=== PATIENT | female | born 1950 | race Hispanic/Latino ===

== ENCOUNTER 2021-10-28 19:04 | Inpatient (IN) | payer OTHER ==
[2021-10-28] VITALS (9 sets, daily range): BP systolic 116–167; BP diastolic 53–99
[2021-10-28] MEDS ORDERED: ATROPINE 1MG SYG IVP ONE (19:56)
[2021-10-28] MEDS ORDERED: NITROGLYCERIN 50MG VIAL ONE (19:56)
[2021-10-28] MEDS ORDERED: HEPARIN 10,000 UNIT/10ML (1,000 UNIT/ML) VIAL ONE (19:56)
[2021-10-28] MEDS ORDERED: IOHEXOL-350 75 ML VIAL IV ONE (19:57)
[2021-10-28] MEDS ORDERED: DOPAMINE HCL 400 MG/D5%-WATER 0 ML IV ONE (19:57)
[2021-10-28] MEDS ORDERED: LIDOCAINE HCL 1% 20 ML VIAL ONE ×2 (19:58→21:04)
[2021-10-28] MEDS ORDERED: 0.9% NACL 500ML IV.SOLN 500 ML IV SCH (20:00)
[2021-10-28] MEDS ORDERED: ONDANSETRON 4MG INJ ONE (20:05)
[2021-10-28] MEDS ORDERED: ONDANSETRON 4MG INJ IVP ONE (20:30)
[2021-10-28] MEDS ORDERED: CLOPIDOGREL 75MG TAB ONE (20:42)
[2021-10-28] MEDS ORDERED: NITROGLYCERIN 50MG/D5W 250ML 1 BOT ONE (21:05)
[2021-10-28] MEDS ORDERED: NITROGLYCERIN 50MG/D5W 250ML 250 BOT IV SCH (21:30)
[2021-10-28] MEDS ORDERED: HEPARIN 25,000 UNITS/250ML D5W 250 ML IV SCH (21:30)
[2021-10-28 21:45] LABS: BASOPHILS % (AUTO) 0.2 % (0.0-5.0); EOSINOPHILS % (AUTO) 0.1 % (0.0-8.0); HEMATOCRIT 38.2 % (36-48); LYMPHOCYTES % (AUTO) 7.2 % (21.0-51.0); MEAN CORPUSCULAR HEMOGLOBIN 33.1 pg (27.0-33.0); MEAN CORPUSCULAR HGB CONC 34.8 g/dL (32.0-36.0); MONOCYTES % (AUTO) 4.7 % (3.0-13.0); NEUTROPHILS % (AUTO) 87.3 % (40.0-77.0); PLATELET COUNT (AUTO) 204 K/uL (130-400); RED BLOOD CELL COUNT(AUTO) 4.02 MIL/uL (4.00-5.50); WHITE BLOOD COUNT (AUTO) 11.9 K/uL (4.8-10.8)
[2021-10-28] MEDS ORDERED: ONDANSETRON 4MG INJ IV PRN (23:00)
[2021-10-28] MEDS ORDERED: CHLORDIAZEPOXIDE HCL 25 MG CAP PO PRN ×2 (23:00)
[2021-10-28] MEDS ORDERED: THIAMINE HCL 100 MG, FOLIC ACID 1 MG, M.V.I. IV [ADULT] 10 ML in 0.9%NACL 1000ML 1,000 ML IV SCH (23:00)
[2021-10-28] MEDS ORDERED: NITROGLYCERIN 0.4 MG SL TAB SL PRN (23:00)
[2021-10-28] MEDS ORDERED: ACETAMINOPHEN 325 MG TAB PO PRN ×2 (23:00)
[2021-10-28] MEDS ORDERED: PHARMACY COMMUNICATION MISC PRN (23:00)
[2021-10-28 23:12] LABS: CARBON DIOXIDE 26 mmol/L (21-32); CHLORIDE 102 mmol/L (101-111); CREATININE 0.8 mg/dL (0.5-1.5); GLOMERULAR FILTR. RATE CALC 75 mL/min (>60); GLUCOSE,RANDOM 155 mg/dL (70-105); POTASSIUM 4.6 mmol/L (3.5-5.1); SODIUM SERUM 137 mmol/L (136-145); UREA NITROGEN, BLOOD 24 mg/dL (7-18)
[2021-10-28 23:14] LABS: HEMOGLOBIN A1C 5.7 % (4.0-6.0)
[2021-10-28 23:17] LABS: ALANINE AMINOTRANSFERASE 32 U/L (12-78); ALBUMIN 3.4 g/dL (3.5-5.0); ALCOHOL, BLOOD < 3 mg/dL (0-10); ASPARTATE AMINOTRANSFERASE 162 U/L (10-37); TOTAL PROTEIN, SERUM 6.5 g/dL (6.0-8.3)
[2021-10-29] VITALS (43 sets, daily range): BP systolic 87–185; BP diastolic 41–116
[2021-10-29] MEDS ORDERED: METOCLOPRAMIDE 10 MG/2 ML VIAL IVP ONE
[2021-10-29 00:26] LABS: APPEARANCE,URINE CLEAR (CLEAR); BILIRUBIN,URINE NEGATIVE (NEGATIVE); COLOR,URINE YELLOW (YELLOW); GLUCOSE, URINE (UA) 100 mg/dL (NEGATIVE); KETONES,URINE 15 mg/dL (NEGATIVE); LEUKOCYTE ESTERASE ,URINE NEGATIVE (NEGATIVE); NITRATE,URINE NEGATIVE (NEGATIVE); OCCULT BLOOD,URINE SMALL (NEGATIVE); PH,URINE 5.5 (5.0-8.0); PROTEIN,URINE NEGATIVE (NEGATIVE); UROBILINOGEN,URINE 0.2 mg/dL (0.2-1.0)
[2021-10-29 00:30] LABS: AMPHET/METH SCREEN,URINE NEGATIVE (NEGATIVE); BARBITURATE SCREEN, URINE NEGATIVE (NEGATIVE); BENZODIAZEPINES SCREEN,URINE NEGATIVE (NEGATIVE); CANNABINOID SCREEN,URINE NEGATIVE (NEGATIVE); COCAINE SCREEN,URINE NEGATIVE (NEGATIVE); PHENCYCLIDINE SCREEN,URINE NEGATIVE (NEGATIVE)
[2021-10-29 00:32] LABS: BACTERIA,URINE None Seen /HPF (None Seen); MUCUS,URINE None Seen LPF (None Seen); RBC,URINE 0-1 /HPF (0-1); SQUAMOUS EPITHELIAL CELL,UR None Seen /HPF (0-2); WBC,URINE None Seen /HPF (0-1)
[2021-10-29] MEDS ORDERED: DOPAMINE 800MG/D5 250ML 250 ML IV SCH (01:00)
[2021-10-29 02:51] LABS: ABG BASE EXCESS -8.1 mmol/L (-2.0-3.0); ABG HCO3 19.3 mmol/L (21.0-28.0); ABG OXYGEN SATURATION 89.5 % (95.0-99.0); ABG PCO2 47 mmHg (32-45)
[2021-10-29 03:01] LABS: HEMATOCRIT 38.4 % (36-48); MEAN CORPUSCULAR HGB CONC 34.6 g/dL (32.0-36.0); MEAN CORPUSCULAR VOLUME 95.3 fL (79-99); RED BLOOD CELL COUNT(AUTO) 4.03 MIL/uL (4.00-5.50); RED CELL DISTRIBUTION WIDTH 11.9 % (11.0-15.5); WHITE BLOOD COUNT (AUTO) 19.6 K/uL (4.8-10.8)
[2021-10-29] MEDS ORDERED: NOREPINEPHRIN 4MG/NS 250ML 250 ML IV ONE (03:06)
[2021-10-29 03:23] LABS: ALBUMIN 3.6 g/dL (3.5-5.0); MAGNESIUM 1.6 mg/dL (1.80-2.40); TOTAL PROTEIN, SERUM 6.9 g/dL (6.0-8.3)
[2021-10-29 03:24] LABS: POTASSIUM 2.9 mmol/L (3.5-5.1)
[2021-10-29 03:29] LABS: INR 0.98 (0.85-1.15); PROTHROMBIN TIME 10.7 SEC (9.6-11.6)
[2021-10-29] MEDS ORDERED: 0.9%NACL 1000ML 1,000 ML IV SCH (03:30)
[2021-10-29] MEDS ORDERED: POTASSIUM CHLORIDE 20 MEQ/100 ML BAG IV SCH (03:30)
[2021-10-29] MEDS ORDERED: NOREPINEPHRIN 4MG/NS 250ML 250 ML IV SCH (03:30)
[2021-10-29] MEDS ORDERED: MAGNESIUM 2GM PREMIX 50ML 50 ML IV SCH (03:30)
[2021-10-29 03:32] LABS: ABG BASE EXCESS -5.8 mmol/L (-2.0-3.0); ABG HCO3 18.5 mmol/L (21.0-28.0); ABG PCO2 33 mmHg (32-45)
[2021-10-29 03:54] LABS: PARTIAL THROMBOPLASTIN TIME > 139.0 SEC (26.3-35.5)
[2021-10-29] MEDS ORDERED: MAGNESIUM 2GM PREMIX 50ML 50 ML IV PRN (04:00)
[2021-10-29] MEDS ORDERED: POTASSIUM CHLORIDE 20MEQ/100ML 100 ML IV PRN (04:00)
[2021-10-29] MEDS ORDERED: LIDOCAINE HCL-MPF 1% 2ML VIAL IJ PRN (04:00)
[2021-10-29] MEDS ORDERED: SODIUM BICARB 50MEQ 50ML VIAL 150 ML ONE (05:25)
[2021-10-29] MEDS ORDERED: DiphenhydrAMINE HCL 50 MG/ML VIAL IV ONE (05:30)
[2021-10-29] MEDS ORDERED: SODIUM BICARB 8.4% 50ML SYRINGE IVP SCH (05:30)
[2021-10-29] MEDS ORDERED: SOLU-MEDROL 125MG VIAL IVP ONE (05:30)
[2021-10-29] MEDS ORDERED: FAMOTIDINE 20MG VIAL IV ONE (05:30)
[2021-10-29] MEDS: SODIUM BICARB 8.4% 50ML SYRING 100 MEQ in DEXTROSE 5%-WATER 1,050 ML IVP SCH ×2 (05:30→06:40)
[2021-10-29] MEDS ORDERED: SODIUM BICARB 50MEQ 50ML VIAL 50 ML ONE (05:34)
[2021-10-29] MEDS ORDERED: PHARMACY COMMUNICATION MISC SCH (06:00)
[2021-10-29 06:33] LABS: INR 0.93 (0.85-1.15); PROTHROMBIN TIME 10.1 SEC (9.6-11.6)
[2021-10-29 06:35] LABS: PARTIAL THROMBOPLASTIN TIME 61.1 SEC (26.3-35.5)
[2021-10-29] MEDS ORDERED: LORAZEPAM 2 MG/ML 1 ML VIAL IVP PRN (08:30)
[2021-10-29] MEDS ORDERED: MORPHINE 2 MG SYG IVP PRN (08:30)
[2021-10-29] MEDS ORDERED: MORPHINE 2 MG SYG ONE (08:52)
[2021-10-29] MEDS ORDERED: FAMOTIDINE 20MG TAB PO SCH (09:00)
[2021-10-29] MEDS ORDERED: METOPROLOL TARTRATE 25 MG TAB PO SCH (09:00)
[2021-10-29] MEDS ORDERED: ASPIRIN 81MG CHEW TAB PO SCH (09:00)
[2021-10-29] MEDS ORDERED: ATORVASTATIN 40 MG TABLET PO SCH (21:00)
== END 2021-10-29 09:46 | DRG 270 ==
LOC: 2CH 19:44
PROVIDERS: ADMIT Internal Medicine; ATTEND Internal Medicine
PROC: 4A023N7 Measurement of Cardiac Sampling and Pressure, Left Heart, Percutaneous Approach (ICD-10-PCS; principal; 2021-10-28)
PROC: 5A02210 Assistance with Cardiac Output using Balloon Pump, Continuous (ICD-10-PCS; 2021-10-28)
PROC: B2111ZZ Fluoroscopy of Multiple Coronary Arteries using Low Osmolar Contrast (ICD-10-PCS; 2021-10-28)
PROC: 5A1935Z Respiratory Ventilation, Less than 24 Consecutive Hours (ICD-10-PCS; 2021-10-29)
PROC: 0BH17EZ Insertion of Endotracheal Airway into Trachea, Via Natural or Artificial Opening (ICD-10-PCS; 2021-10-29)
DX: I21.09 ST elevation (STEMI) myocardial infarction involving other coronary artery of anterior wall (principal); G93.6 Cerebral edema; I60.9 Nontraumatic subarachnoid hemorrhage, unspecified; J96.01 Acute respiratory failure with hypoxia; F10.239 Alcohol dependence with withdrawal, unspecified; Z20.822 Contact with and (suspected) exposure to COVID-19; D72.829 Elevated white blood cell count, unspecified; E11.65 Type 2 diabetes mellitus with hyperglycemia; E78.5 Hyperlipidemia, unspecified; F32.A Depression, unspecified; I10 Essential (primary) hypertension; Z66 Do not resuscitate; I25.10 Atherosclerotic heart disease of native coronary artery without angina pectoris; Z51.5 Encounter for palliative care; Z90.710 Acquired absence of both cervix and uterus; Z95.1 Presence of aortocoronary bypass graft
CPT/HCPCS: 31500; 33967; 36415; 36600; 70450; 71045; 80053; 80061; 80305; 81001; 82435; 82803; 82947; 82948; 83036; 83605; 83735; 83880; 84100; 84132; 84295; 84484; 85018; 85025; 85027; 85384; 85610; 85730; 87635; 93005; 93458; 93880; 94002; C1894; G0378; J0461; J1200; J1265; J1644; J2405; J2765; J2930; J3411; J3475; J3480; J3490; J7030; J7070; Q9967